=== PATIENT | male | born 1950 | race Caucasian/White ===

== ENCOUNTER 2017-04-18 07:07 | Emergency (ER) | payer MEDICARE, MEDICAID ==
[2017-04-18 07:22] VITALS: BMI 29.7
[2017-04-18 08:05] VITALS: RESP 18; O2SAT 99
--- NOTE | 2017-04-18 08:10 | RAD ---
PROCEDURE: Radiographs of the chest and abdomen (obstructive series) HISTORY: constipation, low abd pain COMPARISON: No prior. TECHNIQUE: AP radiograph of the chest, with upright and supine radiographs of the abdomen. FINDINGS: CHEST: Lungs: Clear. Cardiovascular: Normal size heart. No pulmonary vascular congestion. Pleura: No pleural fluid. No pneumothorax. Other findings: None. ABDOMEN AND PELVIS: Bowel: Stool retention. Extensive stool retention. No evidence of mechanical obstruction. Free air: None. 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 Right lower quadrant calcifications -origin indeterminate. IMPRESSION: No infiltrate. Extensive stool retention compatible with constipation. No evidence of mechanical bowel obstruction. Right lower abdominal clustered calcifications - origin indeterminate. Inferior lumbar and bilateral hip senescent changes
[2017-04-18] MEDS ORDERED: Peg-Electrolyte Oral Soln 4L (Golytely) PO STA (08:44)
[2017-04-18 10:26] VITALS: BP 153/95; PULSE 86; TEMP 98.5
--- NOTE | 2017-04-18 11:12 | C.PDOC ---
History Of Present Illness 66 year old male presents to the ED c/o constipation for the past 3-4 days along with some lower abdominal and rectal pressure. Patient denies having similar symptoms in the past. Patient states he had a colonoscopy done 3 months ago that was normal. Patient denies fever, chills, nausea, vomit, diarrhea, dysuria, hematuria, back pain. Time Seen by Provider: 04/18/17 07:27 Chief Complaint (Nursing): GI Problem History Per: Patient History/Exam Limitations: no limitations Onset/Duration Of Symptoms: Days Current Symptoms Are (Timing): Still Present Location Of Pain/Discomfort: LUQ, LLQ Radiation Of Pain To:: None Quality Of Discomfort: Pressure Associated Symptoms: Constipation. denies: Fever, Nausea, Vomiting, Diarrhea, Urinary Symptoms Exacerbating Factors: None Alleviating Factors: None Recent travel outside of the [place]: No Additional History Per: Patient Past Medical History Reviewed: Historical Data, Nursing Documentation, Vital Signs Vital Signs: Last Vital Signs Temp 98.5 F 04/18/17 10:25 Pulse 86 04/18/17 10:25 Resp 18 04/18/17 11:24 BP 153/95 H 04/18/17 10:25 Pulse Ox 99 04/18/17 11:30 - Medical History PMH: Gastritis, HTN, Pneumothorax (x3) Surgical History: Endoscopy - [facility] Procedures ENDOSCOPIC BIOPSY OF RECTUM (10/08/12) ESOPHAGOGASTRODUODENOSCOPY [EGD] W/CLOSED BIOPSY (10/08/12) Family History: States: Unknown Family Hx - Social History Hx Tobacco Use: No Hx Alcohol Use: No Hx Substance Use: No - Immunization History Hx Tetanus Toxoid Vaccination: No Hx Influenza Vaccination: No Hx Pneumococcal Vaccination: No Review Of Systems Except As Marked, All Systems Reviewed And Found Negative. Constitutional: Negative for: Fever, Chills Cardiovascular: Negative for: Chest Pain, Palpitations Respiratory: Negative for: Cough, Shortness of Breath Gastrointestinal: Positive for: Abdominal Pain, Constipation. Negative for: Nausea, Vomiting, Diarrhea Genitourinary: Negative for: Dysuria, Hematuria Skin: Negative for: Rash Neurological: Negative for: Weakness, Numbness Physical Exam - Physical Exam Appears: Non-toxic, No Acute Distress Skin: Normal Color, Warm, Dry Head: Atraumatic, Normacephalic Eye(s): bilateral: Normal Inspection Nose: No Discharge, No Deformity Oral Mucosa: Moist Neck: Normal ROM, Supple Chest: Symmetrical Cardiovascular: Rhythm Regular, No Murmur Respiratory: Normal Breath Sounds, No Rales, No Rhonchi, No Wheezing Gastrointestinal/Abdominal: Soft, Tenderness (Lower abdomen to palpation), No Guarding, No Rebound Rectal: Heme Negative, No Hemorrhoids, No Mass, Other (hard stool found in the ampula) Back: Normal Inspection Extremity: Normal ROM, No Pedal Edema, No Calf Tenderness, No Deformity, No Swelling Neurological/Psych: Oriented x3, Normal Speech, Normal Cognition Gait: Steady ED Course And Treatment O2 Sat by Pulse Oximetry: 99 (On RA) Pulse Ox Interpretation: Normal - Other Rad Abd obstructive series X-Ray X-Ray: Viewed By Me, Read By Radiologist Interpretation: PROCEDURE: Radiographs of the chest and abdomen (obstructive series). HISTORY: constipation, low abd pain. COMPARISON: No prior. TECHNIQUE: AP radiograph of the chest, with upright and supine radiographs of the abdomen. FINDINGS: CHEST: Lungs: Clear. Cardiovascular: Normal size heart. No pulmonary vascular congestion. Pleura: No pleural fluid. No pneumothorax. Other findings: None. ABDOMEN AND PELVIS: Bowel: Stool retention. Extensive stool retention. No evidence of mechanical obstruction. Free air: None. Bones: Exuberant inferior lumbar spondylosis. Bilateral hip arthrosis. Other findings: Bilateral hemipelvic phleboliths. Right lower quadrant calcifications -origin indeterminate. IMPRESSION: No infiltrate. Extensive stool retention compatible with constipation. No evidence of mechanical bowel obstruction. Right lower abdominal clustered calcifications - origin indeterminate. Inferior lumbar and bilateral hip senescent changes Progress Note: Plan: -Obstructuve Series X-Ray. - Digital disimpaction of stool. - Fleet enema 135 ml GA. - Golytely 4,000 ml PO. Digital disimpaction was done and some hard stool was removed. After the medication was given patient was able to have 2 big bowel movements. Patient is stable to be d/c home and instricted to come back to the ED if pain returns or worsens. Procedure: Blank - Time Out Time Out: Patient ID confirmed - Consent obtained: Consent obtained: Verbal - Performed by: Performed by:: Mid-level provider - Contraindications: Contraindications:: None - Patient Position Patient Position:: Left lateral decubitus - Result Result: Successful - Post-Procedure Post-procedure:: Other (digital stool disimpaction) - Patient Tolerated Procedure Patient Tolerated Procedure:: Well Disposition - Disposition Disposition: HOME/ ROUTINE Disposition Time: 11:11 Condition: STABLE Additional Instructions: Follow up with your PMD within 1-2 days. Return to ED if feel worse. Prescriptions: Lactulose 30 ml PO DAILY PRN #600 ml PRN Reason: Constipation Instructions: Constipation (ED) Forms: [employer] (C[place] Verdean) Print Language: ICELANDIC - Clinical Impression Clinical Impression: Constipation - PA / [employer] / Resident Statement MD/DO has reviewed & agrees with the documentation as recorded. - Scribe Statement The provider has reviewed the documentation as recorded by the Scribe Emeka Rios All medical record entries made by the Scribe were at my direction and personally dictated by me. I have reviewed the chart and agree that the record accurately reflects my personal performance of the history, physical exam, medical decision making, and the department course for this patient. I have also personally directed, reviewed, and agree with the discharge instructions and disposition.
== END 2017-04-18 11:25 | disposition home or self-care (01) ==
LOC: C.ER 07:07
DX: K59.00 Constipation, unspecified (principal)
CPT/HCPCS: 74022; 99284; G0328